=== PATIENT | male | born 1955 | race Caucasian/White ===

== ENCOUNTER 2021-12-12 06:29 | Day surgery (SDC) | payer MEDICARE, MEDICAID ==
[~2021-12-12] VITALS: Ht 188 cm; Wt 114.7 kg
[2021-12-12 06:55] VITALS: BP 163/87
[2021-12-12] MEDS ORDERED: HUM10VIA (07:03)
[2021-12-12] MEDS ORDERED: HYDR-3972 PO (07:03)
[2021-12-12] MEDS ORDERED: APIX5TAB3 PO (07:03)
[2021-12-12 07:19] VITALS: BP 163/87
--- NOTE | 2021-12-12 08:20 | NUR ---
Updated pt with plan to do procedure with local anesthesia and no IV required. Pt stated he feels like his blood sugar might be getting low. Bedside glucose check preformed, glucose 117. Instructed pt to call if he feels worse and will re-check. Also notified pt of snacks available for after procedure.
[2021-12-12] MEDS ORDERED: LIDOcaine 1% 30ml preserv. free vial ONE (08:50)
--- NOTE | 2021-12-12 09:20 | NUR ---
Pt to IR with angio RN. via ced.
[2021-12-12 10:02] VITALS: BP 181/88
--- NOTE | 2021-12-12 10:02 | NUR ---
Pt return from IR via gurney. Right chest incision with dermabond no bleeding, bruising or hematoma noted. VSS, denies pain. Pt amb to rest room, gait steady void in toilet. Pt got himself dressed.
[2021-12-12 10:17] VITALS: BP 165/84
--- NOTE | 2021-12-12 10:18 | NUR ---
Written and verbal DC instructions given to pt and Cirilo, verbalize understanding. Incision site stable, no bleeding, bruising or hematoma noted. VSS. Denies pain. DC to home with Cirilo at 1020 pt amb to private car gait steady.
== END 2021-12-12 10:20 | disposition home or self-care (01) ==
LOC: SSTAY O 06:29
PROVIDERS: ATTEND Radiology Vascular & Interventional Radiology
DX: Z45.2 Encounter for adjustment and management of vascular access device (principal); E11.9 Type 2 diabetes mellitus without complications; Z85.46 Personal history of malignant neoplasm of prostate; Z86.718 Personal history of other venous thrombosis and embolism; Z79.01 Long term (current) use of anticoagulants; Z88.0 Allergy status to penicillin; Z88.8 Allergy status to other drugs, medicaments and biological substances; Z79.4 Long term (current) use of insulin; Z79.899 Other long term (current) drug therapy
CPT/HCPCS: 36590; 82948; J3490